=== PATIENT | male | born 1945 | race African-American/Black ===

== ENCOUNTER 2016-12-30 14:46 | Emergency (ER) | payer MEDICARE ==
[~2016-12-30] VITALS: Ht 182.9 cm; Wt 115.0 kg
[~2016-12-30 14:46] MED LIST: BENA1TAB PO; BISM262O; DIAZ10TA PO; DOXA1TAB PO; HYDR-4001 PO; METF500T PO; NITR0.4T SL; PRO AIR
[2016-12-30] MEDS ORDERED: IBUPROFEN 600MG TABLET PO ONE (18:30)
[2016-12-30] MEDS ORDERED: CYCLOBENZAPRINE 10MG TABLET PO ONE (18:30)
[2016-12-30 18:53] VITALS: BP 142/84
[2016-12-30 19:22] LABS: CARBON DIOXIDE 27 mEq/L (21-32); CHLORIDE 103 mEq/L (98-107)
== END 2016-12-30 20:03 | disposition home or self-care (01) ==
LOC: ER 14:50
DX: M25.552 Pain in left hip (principal); I11.9 Hypertensive heart disease without heart failure; Z88.1 Allergy status to other antibiotic agents
CPT/HCPCS: 36415; 73502; 80048; 99285

== ENCOUNTER → 2017-10-01 | Outpatient (CLI) | payer MEDICARE ==
[~2017-10-01] MED LIST changes: +IOHEXOL-300 100 ML BOTTLE ONE
== END | disposition home or self-care (01) ==
LOC: NM 08:50
PROVIDERS: ATTEND Urology
DX: K43.9 Ventral hernia without obstruction or gangrene (principal); C61 Malignant neoplasm of prostate
CPT/HCPCS: 72193; 78306; A9503; Q9967

== ENCOUNTER 2018-12-01 08:53 | Inpatient (IN) | payer MEDICARE ==
[~2018-12-01] VITALS: Ht 190.5 cm; Wt 115.7 kg
[~2018-12-01 08:53] MED LIST changes: -IOHEXOL-300 100 ML BOTTLE ONE
[2018-12-01] MEDS ORDERED: KETOROLAC 30MG/ML VIAL IV STA (09:26)
[2018-12-01] MEDS ORDERED: MORPHINE SULFATE 4 MG/ML CPJ (NOT FOR IM USE) IV STA (09:26)
[2018-12-01] MEDS ORDERED: DEXAMETHASONE 4MG/ML 1ML VIAL IV ONE (09:30)
[2018-12-01 09:59] LABS: BASOPHILS % 0.2 % (0.0-2.0); EOSINOPHILS % 0.8 % (0.0-5.0); HEMATOCRIT. 36.7 % (42.0-52.0); LYMPHOCYTES % 9.1 % (20.0-50.0); MEAN CORPUSCULAR HEMOGLOBIN 28.6 pg (28.0-32.0); MEAN CORPUSCULAR VOLUME 87.3 fL (80.0-94.0); MONOCYTES % 5.8 % (2.0-8.0); NEUTROPHILS % 84.1 % (40.0-76.0); PLATELET 161 x1000/uL (130-400); RED CELL DISTRIBUTION WIDTH 14.4 % (11.6-14.6)
[2018-12-01 10:00] LABS: CHLORIDE 107 mEq/L (98-107)
[2018-12-01] MEDS ORDERED: MORPHINE SULFATE 4 MG/ML CPJ (NOT FOR IM USE) IV ONE (11:15)
[2018-12-01 13:30] VITALS: BP 152/69
[2018-12-01] MEDS ORDERED: ACETAMINOPHEN 325MG TABLET PO PRN (17:45)
[2018-12-01] MEDS ORDERED: ENOXAPARIN 40MG/0.4ML SYR SUBCUT SCH (17:45)
[2018-12-01] MEDS ORDERED: CLONIDINE 0.1MG TABLET PO PRN (17:45)
[2018-12-01] MEDS ORDERED: NITROGLYCERIN 0.4MG TABLET SL SL PRN (17:45)
[2018-12-01] MEDS ORDERED: IPRATROPIUM/ALBUTEROL 0.5-3(2.5)MG/3ML NEB HHN PRN (17:45)
[2018-12-01] MEDS ORDERED: DOCUSATE SODIUM 100MG CAPSULE PO PRN (17:45)
[2018-12-01] MEDS ORDERED: TEMAZEPAM 15MG CAPSULE PO PRN (17:45)
[2018-12-01] MEDS: DEXAMETHASONE 10 MG/ML VIAL PO SCH ×2 (18:08→23:50)
[2018-12-01] MEDS: LISINOPRIL 40MG TABLET PO SCH (18:08)
[2018-12-01 20:00] VITALS: BP 129/76
[2018-12-01] MEDS: CARVEDILOL 6.25 MG TABLET PO SCH (21:27)
[2018-12-01] MEDS: FAMOTIDINE 20MG TABLET PO SCH (21:27)
[2018-12-01] MEDS: DOXAZOSIN MESYLATE 2MG TABLET PO SCH (21:27)
[2018-12-01] MEDS: CYCLOBENZAPRINE 10MG TABLET PO SCH (21:27)
[2018-12-01] MEDS: ENOXAPARIN 30MG/0.3ML SYR SUBCUT SCH (21:28)
[2018-12-01] MEDS: SODIUM CHLORIDE 0.9% INJ 3ML FLUSH IVF SCH (21:28)
[2018-12-02] VITALS: BP 122/89
[2018-12-02 04:00] VITALS: BP 147/80
[2018-12-02] MEDS: SODIUM CHLORIDE 0.9% INJ 3ML FLUSH IVF SCH ×3 (05:25→21:16)
[2018-12-02] MEDS: DEXAMETHASONE 10 MG/ML VIAL PO SCH ×4 (05:26→23:37)
[2018-12-02] MEDS: CYCLOBENZAPRINE 10MG TABLET PO SCH ×3 (05:26→21:16)
[2018-12-02 05:47] LABS: CHLORIDE 104 mEq/L (98-107)
[2018-12-02 06:04] LABS: HEMATOCRIT. 39.2 % (42.0-52.0); HEMOGLOBIN. 12.9 g/dL (14.0-18.0); MEAN CORPUSCULAR HEMOGLOBIN 28.4 pg (28.0-32.0); MEAN CORPUSCULAR VOLUME 86.4 fL (80.0-94.0); MEAN PLATELET VOLUME 8.6 fl (7.4-10.4); PLATELET 184 x1000/uL (130-400); RED BLOOD CELL COUNT 4.54 mill/uL (4.7-6.1); RED CELL DISTRIBUTION WIDTH 14.2 % (11.6-14.6)
[2018-12-02] MEDS: FAMOTIDINE 20MG TABLET PO SCH ×2 (09:42→21:16)
[2018-12-02] MEDS: CARVEDILOL 6.25 MG TABLET PO SCH ×2 (09:42→21:15)
[2018-12-02] MEDS: LISINOPRIL 40MG TABLET PO SCH (09:42)
[2018-12-02] MEDS: ENOXAPARIN 30MG/0.3ML SYR SUBCUT SCH ×2 (09:43→21:16)
[2018-12-02] MEDS: HYDROMORPHONE HCL/PF 2MG/ML CPJ IV PRN ×2 (12:10→21:43)
[2018-12-02] MEDS: AMLODIPINE 5MG TABLET PO SCH ×2 (14:08→21:15)
[2018-12-02] MEDS: FUROSEMIDE 40MG TABLET PO SCH (14:13)
[2018-12-02 18:42] LABS: CLARITY URINE CLEAR (CLEAR); COLOR URINE YELLOW (YELLOW); KETONES URINE TRACE (NEGATIVE); LEUKOCYTE ESTERASE URINE NEGATIVE (NEGATIVE); NITRITE URINE NEGATIVE (NEGATIVE); OCCULT BLOOD URINE NEGATIVE (NEGATIVE); PROTEIN URINE NEGATIVE (NEGATIVE); SPECIFIC GRAVITY URINE 1.018 (1.005-1.030); UROBILINOGEN URINE 0.2 E.U./dL (0.2-1.0)
[2018-12-02] MEDS ORDERED: DEXTROSE 50% WATER 50ML SYRINGE IV PRN (19:30)
[2018-12-02 20:00] VITALS: BP 133/79
[2018-12-02 20:10] LABS: PLATELET ESTIMATE NORMAL
[2018-12-02] MEDS: DOXAZOSIN MESYLATE 2MG TABLET PO SCH (21:15)
[2018-12-02] MEDS: BLOOD SUGAR DIAGNOSTIC STRIP TEST SCH (21:30)
[2018-12-02] MEDS: INSULIN LISPRO 100 UNITS/ML SUBCUT SCH (21:34)
[2018-12-03] VITALS: BP 147/88
[2018-12-03 04:00] VITALS: BP 140/87
[2018-12-03] MEDS: SODIUM CHLORIDE 0.9% INJ 3ML FLUSH IVF SCH ×2 (05:21→13:45)
[2018-12-03] MEDS: DEXAMETHASONE 10 MG/ML VIAL PO SCH (05:21)
[2018-12-03] MEDS: CYCLOBENZAPRINE 10MG TABLET PO SCH ×3 (05:21→21:14)
[2018-12-03] MEDS: BLOOD SUGAR DIAGNOSTIC STRIP TEST SCH ×4 (06:53→21:10)
[2018-12-03 07:26] LABS: HEMATOCRIT. 38.5 % (42.0-52.0); HEMOGLOBIN. 12.7 g/dL (14.0-18.0); MEAN CORPUSCULAR HEMOGLOBIN 28.5 pg (28.0-32.0); MEAN CORPUSCULAR VOLUME 86.6 fL (80.0-94.0); MEAN PLATELET VOLUME 8.3 fl (7.4-10.4); PLATELET 174 x1000/uL (130-400); RED BLOOD CELL COUNT 4.45 mill/uL (4.7-6.1); RED CELL DISTRIBUTION WIDTH 14.4 % (11.6-14.6)
[2018-12-03 07:31] LABS: CHLORIDE 105 mEq/L (98-107)
[2018-12-03] MEDS: INSULIN LISPRO 100 UNITS/ML SUBCUT SCH ×3 (07:50→17:10)
[2018-12-03 08:00] VITALS: BP 127/89
[2018-12-03] MEDS: ENOXAPARIN 30MG/0.3ML SYR SUBCUT SCH ×2 (08:44→21:17)
[2018-12-03] MEDS: FUROSEMIDE 40MG TABLET PO SCH (08:44)
[2018-12-03] MEDS: FAMOTIDINE 20MG TABLET PO SCH ×2 (08:44→21:13)
[2018-12-03] MEDS: CARVEDILOL 6.25 MG TABLET PO SCH ×2 (08:45→21:15)
[2018-12-03] MEDS: AMLODIPINE 5MG TABLET PO SCH ×2 (08:46→21:14)
[2018-12-03] MEDS: HYDROMORPHONE HCL/PF 2MG/ML CPJ IV PRN ×3 (09:40→21:13)
[2018-12-03 12:00] VITALS: BP 110/82
[2018-12-03] MEDS: DEXAMETHASONE 4MG/ML 1ML VIAL IV SCH ×2 (12:32→17:10)
[2018-12-03 16:00] VITALS: BP 143/85
[2018-12-03 16:48] LABS: PLATELET ESTIMATE NORMAL
[2018-12-03] MEDS ORDERED: SACUBITRIL/VALSARTAN 49MG/51MG TABLET PO SCH (21:00)
[2018-12-03] MEDS: DOXAZOSIN MESYLATE 2MG TABLET PO SCH (21:14)
[2018-12-03 23:30] VITALS: BP 117/83
[2018-12-04] MEDS ORDERED: SACU1TAB7 MT ×2 (01:14→01:33)
== END 2018-12-03 23:30 | DRG 552 ==
LOC: ER 08:53 → 6EST 11:35 → ENRESERV 12:06
PROVIDERS: ADMIT Ophthalmology; ATTEND Ophthalmology
DX: M48.061 Spinal stenosis, lumbar region without neurogenic claudication (principal); G82.20 Paraplegia, unspecified; I13.0 Hypertensive heart and chronic kidney disease with heart failure and stage 1 through stage 4 chronic kidney disease, or unspecified chronic kidney disease; M47.26 Other spondylosis with radiculopathy, lumbar region; E78.5 Hyperlipidemia, unspecified; G89.29 Other chronic pain; I25.10 Atherosclerotic heart disease of native coronary artery without angina pectoris; I44.0 Atrioventricular block, first degree; I25.5 Ischemic cardiomyopathy; M19.90 Unspecified osteoarthritis, unspecified site; N40.0 Benign prostatic hyperplasia without lower urinary tract symptoms; M25.561 Pain in right knee; N18.9 Chronic kidney disease, unspecified; E11.22 Type 2 diabetes mellitus with diabetic chronic kidney disease; M51.16 Intervertebral disc disorders with radiculopathy, lumbar region; Z82.49 Family history of ischemic heart disease and other diseases of the circulatory system; Z85.46 Personal history of malignant neoplasm of prostate; Z83.3 Family history of diabetes mellitus; Z95.1 Presence of aortocoronary bypass graft; I25.2 Old myocardial infarction; Z82.3 Family history of stroke; Z88.1 Allergy status to other antibiotic agents; Z79.899 Other long term (current) drug therapy; Z88.8 Allergy status to other drugs, medicaments and biological substances; Z79.84 Long term (current) use of oral hypoglycemic drugs; I50.9 Heart failure, unspecified
CPT/HCPCS: 36415; 72131; 72148; 73502; 80048; 81003; 82962; 93005; 93306; 97116; 97162; 97166; 97760; 99285; J1100; J1170; J1650; J1815; J1885; J2270; J7070

== ENCOUNTER 2018-12-03 23:40 | Inpatient (IN) | payer MEDICARE ==
[~2018-12-03] VITALS: Ht 190.5 cm; Wt 115.7 kg
[2018-12-03 11:40] VITALS: BP 133/75
[2018-12-03 23:14] VITALS: BP 133/75
[2018-12-03 23:40] VITALS: BP 133/75
[~2018-12-03 23:40] MED LIST changes: -BISM262O; -DIAZ10TA PO; -HYDR-4001 PO; -PRO AIR
[2018-12-04] MEDS ORDERED: SACU1TAB7 MT ×2 (01:14→01:33)
[2018-12-04] MEDS ORDERED: CLONIDINE 0.1MG TABLET PO PRN (01:45)
[2018-12-04] MEDS ORDERED: TEMAZEPAM 15MG CAPSULE PO PRN (01:45)
[2018-12-04] MEDS ORDERED: ACETAMINOPHEN 325MG TABLET PO PRN (01:45)
[2018-12-04] MEDS ORDERED: NITROGLYCERIN 0.4MG TABLET SL SL PRN (01:45)
[2018-12-04] MEDS ORDERED: DEXTROSE 50% WATER 50ML SYRINGE IV PRN (01:45)
[2018-12-04] MEDS ORDERED: IPRATROPIUM/ALBUTEROL 0.5-3(2.5)MG/3ML NEB HHN SCH (04:00)
[2018-12-04] MEDS: BLOOD SUGAR DIAGNOSTIC STRIP TEST SCH ×4 (06:45→20:43)
[2018-12-04] MEDS: DEXAMETHASONE 4MG/ML 1ML VIAL IV SCH ×4 (06:45→23:16)
[2018-12-04] MEDS: CYCLOBENZAPRINE 10MG TABLET PO SCH ×3 (06:46→21:42)
[2018-12-04 07:45] VITALS: BP 124/67
[2018-12-04] MEDS: AMLODIPINE 5MG TABLET PO SCH (08:16)
[2018-12-04] MEDS: CARVEDILOL 6.25 MG TABLET PO SCH ×2 (08:16→20:43)
[2018-12-04] MEDS: FAMOTIDINE 20MG TABLET PO SCH ×2 (08:16→20:43)
[2018-12-04] MEDS: DOCUSATE SODIUM 100MG CAPSULE PO SCH ×3 (08:16→16:15)
[2018-12-04] MEDS: SACUBITRIL/VALSARTAN 49MG/51MG TABLET PO SCH ×2 (08:17→16:14)
[2018-12-04] MEDS: FUROSEMIDE 40MG TABLET PO SCH (08:17)
[2018-12-04] MEDS: INSULIN LISPRO 100 UNITS/ML SUBCUT SCH ×4 (08:21→20:43)
[2018-12-04] MEDS ORDERED: NON FORMULARY PATIENT HOME MED PO SCH (09:00)
[2018-12-04] MEDS ORDERED: ENOXAPARIN 30MG/0.3ML SYR SUBCUT SCH (09:00)
[2018-12-04] MEDS: HYDROMORPHONE HCL/PF 2MG/ML CPJ IV PRN ×2 (09:10→12:32)
[2018-12-04] MEDS ORDERED: DIPHENHYDRAMINE 50MG/ML VIAL IV PRN (16:00)
[2018-12-04] MEDS ORDERED: ONDANSETRON HCL 4MG/2ML INJ IV PRN (16:00)
[2018-12-04] MEDS ORDERED: LORAZEPAM 2MG/ML CPJ IV PRN (16:00)
[2018-12-04] MEDS: APIXABAN 5 MG TABLET PO SCH (18:21)
[2018-12-04 20:00] VITALS: BP 125/74
[2018-12-04] MEDS: DOXAZOSIN MESYLATE 2MG TABLET PO SCH (21:42)
[2018-12-04 22:25] LABS: HEMATOCRIT 35.1 % (42.0-52.0); HEMOGLOBIN 11.6 g/dL (14.0-18.0); MEAN CORPUSCULAR HEMOGLOBIN 28.7 pg (28.0-32.0); MEAN CORPUSCULAR VOLUME 86.9 fL (80.0-94.0); PLATELET 145 x1000/uL (130-400); RED BLOOD CELL COUNT 4.04 mill/uL (4.7-6.1); RED CELL DISTRIBUTION WIDTH 14.1 % (11.6-14.6)
[2018-12-04 22:33] LABS: INR 1.2
[2018-12-05] MEDS ORDERED: DEXAMETHASONE 1MG TABLET PO SCH (06:00)
[2018-12-05] MEDS: CYCLOBENZAPRINE 10MG TABLET PO SCH ×4 (06:04→21:26)
[2018-12-05] MEDS: DEXAMETHASONE 4MG/ML 1ML VIAL IV SCH (06:04)
[2018-12-05] MEDS: INSULIN LISPRO 100 UNITS/ML SUBCUT SCH ×4 (06:05→22:21)
[2018-12-05] MEDS: BLOOD SUGAR DIAGNOSTIC STRIP TEST SCH ×4 (06:05→21:41)
[2018-12-05 07:32] LABS: HEMATOCRIT. 37.2 % (42.0-52.0); HEMOGLOBIN. 12.3 g/dL (14.0-18.0); MEAN CORPUSCULAR HEMOGLOBIN 28.7 pg (28.0-32.0); MEAN CORPUSCULAR VOLUME 86.6 fL (80.0-94.0); MEAN PLATELET VOLUME 8.7 fl (7.4-10.4); PLATELET 139 x1000/uL (130-400); RED BLOOD CELL COUNT 4.29 mill/uL (4.7-6.1); RED CELL DISTRIBUTION WIDTH 14.1 % (11.6-14.6)
[2018-12-05 07:35] LABS: HEMATOCRIT 36.7 % (42.0-52.0); HEMOGLOBIN 12.5 g/dL (14.0-18.0); MEAN CORPUSCULAR HEMOGLOBIN 29.4 pg (28.0-32.0); MEAN CORPUSCULAR VOLUME 86.3 fL (80.0-94.0); PLATELET 143 x1000/uL (130-400); RED BLOOD CELL COUNT 4.25 mill/uL (4.7-6.1); RED CELL DISTRIBUTION WIDTH 14.2 % (11.6-14.6)
[2018-12-05 07:59] VITALS: BP 162/86
[2018-12-05] MEDS: FAMOTIDINE 20MG TABLET PO SCH ×3 (08:27→21:26)
[2018-12-05] MEDS: FUROSEMIDE 40MG TABLET PO SCH (08:28)
[2018-12-05] MEDS: CARVEDILOL 6.25 MG TABLET PO SCH ×2 (08:28→21:52)
[2018-12-05] MEDS: DOCUSATE SODIUM 100MG CAPSULE PO SCH ×4 (08:28→17:00)
[2018-12-05] MEDS: AMLODIPINE 5MG TABLET PO SCH (08:28)
[2018-12-05] MEDS: HYDROMORPHONE HCL/PF 2MG/ML CPJ IV PRN (08:31)
[2018-12-05 08:34] LABS: CHLORIDE 106 mEq/L (98-107)
[2018-12-05 08:43] LABS: PHOSPHORUS 3.1 mg/dL (2.5-4.9)
[2018-12-05 08:47] LABS: TOTAL IRON BINDING CAPACITY 228 ug/dL (250-450)
[2018-12-05] MEDS: SACUBITRIL/VALSARTAN 49MG/51MG TABLET PO SCH ×2 (09:11→17:14)
[2018-12-05 10:09] LABS: PLATELET ESTIMATE NORMAL
[2018-12-05 10:15] LABS: FOLIC ACID (FOLATE) SERUM 6.1 ng/mL (>5.38)
[2018-12-05] MEDS ORDERED: BISACODYL 10MG SUPP PR NR (10:15)
[2018-12-05] MEDS: DEXAMETHASONE 1MG TABLET PO SCH ×3 (11:40→23:08)
[2018-12-05] MEDS: LIDOCAINE 5% PATCH TOP SCH (11:41)
[2018-12-05] MEDS: HYDROCODONE/APAP 7.5/325MG 1 TAB TABLET PO PRN ×2 (11:41→21:24)
[2018-12-05] MEDS: LACTULOSE 20G/30ML UDC PO SCH ×4 (11:55→21:08)
[2018-12-05] MEDS: APIXABAN 5 MG TABLET PO SCH ×2 (11:57→17:14)
[2018-12-05] MEDS ORDERED: PANT40TA4 MT (13:59)
[2018-12-05] MEDS ORDERED: FELO2.5T MT (13:59)
[2018-12-05] MEDS ORDERED: DIAZ10TA4 PO (13:59)
[2018-12-05] MEDS ORDERED: ALBU90AE IH (13:59)
[2018-12-05] MEDS ORDERED: ATOR40TA70 MT (13:59)
[2018-12-05] MEDS ORDERED: CARV25TA47 MT (13:59)
[2018-12-05] MEDS ORDERED: FURO20TA4 MT (13:59)
[2018-12-05] MEDS ORDERED: CLOP75TA33 MT (13:59)
[2018-12-05] MEDS ORDERED: POTA20TA82 PO (13:59)
[2018-12-05] MEDS ORDERED: HYDR-4005 MT (13:59)
[2018-12-05] MEDS: SODIUM CHLORIDE 0.45% 1,000 ML IV SCH (15:55)
[2018-12-05 20:00] VITALS: BP 117/79
[2018-12-05] MEDS: DOXAZOSIN MESYLATE 2MG TABLET PO SCH ×2 (21:25→21:27)
[2018-12-06] MEDS: SODIUM CHLORIDE 0.45% 1,000 ML IV SCH ×2 (05:25→22:05)
[2018-12-06] MEDS: HYDROCODONE/APAP 7.5/325MG 1 TAB TABLET PO PRN ×3 (06:51→20:39)
[2018-12-06] MEDS: DEXAMETHASONE 1MG TABLET PO SCH ×3 (06:52→17:22)
[2018-12-06] MEDS: BLOOD SUGAR DIAGNOSTIC STRIP TEST SCH ×4 (06:55→20:40)
[2018-12-06 07:41] VITALS: BP 156/98
[2018-12-06] MEDS: AMLODIPINE 5MG TABLET PO SCH (08:15)
[2018-12-06] MEDS: CARVEDILOL 6.25 MG TABLET PO SCH ×2 (08:15→21:18)
[2018-12-06] MEDS: FAMOTIDINE 20MG TABLET PO SCH ×2 (08:15→20:40)
[2018-12-06] MEDS: FUROSEMIDE 40MG TABLET PO SCH (08:15)
[2018-12-06] MEDS: APIXABAN 5 MG TABLET PO SCH ×2 (08:15→17:47)
[2018-12-06] MEDS: DOCUSATE SODIUM 100MG CAPSULE PO SCH ×4 (08:16→17:00)
[2018-12-06] MEDS: POLYETHYLENE GLYCOL 3350 (17GM) 1 DOSE PACK PO SCH (08:16)
[2018-12-06] MEDS: SACUBITRIL/VALSARTAN 49MG/51MG TABLET PO SCH ×2 (08:17→17:22)
[2018-12-06] MEDS: LIDOCAINE 5% PATCH TOP SCH (08:17)
[2018-12-06] MEDS: INSULIN LISPRO 100 UNITS/ML SUBCUT SCH ×4 (08:18→20:48)
[2018-12-06 08:43] LABS: CHLORIDE 106 mEq/L (98-107)
[2018-12-06 09:00] LABS: T4 FREE 0.87 ng/dL (0.76-1.46)
[2018-12-06] MEDS: CYCLOBENZAPRINE 10MG TABLET PO SCH ×2 (13:28→20:40)
[2018-12-06 20:00] VITALS: BP 129/78
[2018-12-07] MEDS: DEXAMETHASONE 2MG TABLET PO SCH ×5 (00:45→23:01)
[2018-12-07] MEDS: CYCLOBENZAPRINE 10MG TABLET PO SCH ×3 (05:59→23:01)
[2018-12-07] MEDS: BLOOD SUGAR DIAGNOSTIC STRIP TEST SCH ×4 (06:00→21:29)
[2018-12-07] MEDS: INSULIN LISPRO 100 UNITS/ML SUBCUT SCH ×4 (06:08→21:35)
[2018-12-07] MEDS: HYDROCODONE/APAP 7.5/325MG 1 TAB TABLET PO PRN ×3 (06:52→21:27)
[2018-12-07 07:55] LABS: HEMATOCRIT. 40.6 % (42.0-52.0); HEMOGLOBIN. 13.2 g/dL (14.0-18.0); MEAN CORPUSCULAR HEMOGLOBIN 28.3 pg (28.0-32.0); MEAN PLATELET VOLUME 8.7 fl (7.4-10.4); PLATELET 169 x1000/uL (130-400); RED BLOOD CELL COUNT 4.66 mill/uL (4.7-6.1); RED CELL DISTRIBUTION WIDTH 14.2 % (11.6-14.6)
[2018-12-07 08:00] VITALS: BP 139/91
[2018-12-07 08:05] LABS: CHLORIDE 105 mEq/L (98-107)
[2018-12-07] MEDS: CARVEDILOL 6.25 MG TABLET PO SCH ×2 (08:25→21:28)
[2018-12-07] MEDS: AMLODIPINE 5MG TABLET PO SCH (08:25)
[2018-12-07] MEDS: FAMOTIDINE 20MG TABLET PO SCH ×2 (08:25→21:27)
[2018-12-07] MEDS: POLYETHYLENE GLYCOL 3350 (17GM) 1 DOSE PACK PO SCH (08:26)
[2018-12-07] MEDS: FUROSEMIDE 40MG TABLET PO SCH (08:26)
[2018-12-07] MEDS: LIDOCAINE 5% PATCH TOP SCH (08:26)
[2018-12-07] MEDS: SACUBITRIL/VALSARTAN 49MG/51MG TABLET PO SCH ×2 (08:26→17:53)
[2018-12-07] MEDS: DOCUSATE SODIUM 100MG CAPSULE PO SCH ×3 (08:26→17:00)
[2018-12-07] MEDS: APIXABAN 5 MG TABLET PO SCH ×2 (09:11→17:49)
[2018-12-07 09:39] LABS: PLATELET ESTIMATE NORMAL
[2018-12-07] MEDS: SODIUM CHLORIDE 0.45% 1,000 ML IV SCH (14:45)
[2018-12-07 20:00] VITALS: BP 119/84
[2018-12-07] MEDS: DOXAZOSIN MESYLATE 2MG TABLET PO SCH (23:01)
[2018-12-08] MEDS: DEXAMETHASONE 2MG TABLET PO SCH ×3 (06:07→16:45)
[2018-12-08] MEDS: CYCLOBENZAPRINE 10MG TABLET PO SCH ×3 (06:07→23:26)
[2018-12-08] MEDS: BLOOD SUGAR DIAGNOSTIC STRIP TEST SCH ×4 (06:08→21:05)
[2018-12-08] MEDS: INSULIN LISPRO 100 UNITS/ML SUBCUT SCH ×4 (06:14→21:12)
[2018-12-08] MEDS: SODIUM CHLORIDE 0.45% 1,000 ML IV SCH ×3 (07:25→17:04)
[2018-12-08 08:00] VITALS: BP 120/66
[2018-12-08] MEDS: DOCUSATE SODIUM 100MG CAPSULE PO SCH ×2 (08:32→16:45)
[2018-12-08] MEDS: POLYETHYLENE GLYCOL 3350 (17GM) 1 DOSE PACK PO SCH (08:33)
[2018-12-08] MEDS: APIXABAN 5 MG TABLET PO SCH ×2 (08:33→16:45)
[2018-12-08] MEDS: FAMOTIDINE 20MG TABLET PO SCH ×2 (08:33→21:04)
[2018-12-08] MEDS: LIDOCAINE 5% PATCH TOP SCH (08:33)
[2018-12-08] MEDS: FUROSEMIDE 40MG TABLET PO SCH (08:33)
[2018-12-08] MEDS: CARVEDILOL 6.25 MG TABLET PO SCH ×2 (08:33→21:04)
[2018-12-08] MEDS: AMLODIPINE 5MG TABLET PO SCH (08:37)
[2018-12-08] MEDS: SACUBITRIL/VALSARTAN 49MG/51MG TABLET PO SCH ×2 (08:37→16:45)
[2018-12-08] MEDS: HYDROCODONE/APAP 7.5/325MG 1 TAB TABLET PO PRN ×3 (08:47→23:29)
[2018-12-08 09:35] LABS: CHLORIDE 103 mEq/L (98-107)
[2018-12-08] MEDS ORDERED: SODIUM POLYSTYRENE SULFONATE 15 G/60 ML BOT PO NR (12:30)
[2018-12-08 20:00] VITALS: BP 126/66
[2018-12-08] MEDS: DOXAZOSIN MESYLATE 2MG TABLET PO SCH (21:05)
[2018-12-08] MEDS: DEXAMETHASONE 1MG TABLET PO SCH (23:26)
[2018-12-09] MEDS: SODIUM CHLORIDE 0.45% 1,000 ML IV SCH ×2 (04:44→14:44)
[2018-12-09] MEDS: DEXAMETHASONE 1MG TABLET PO SCH ×3 (05:32→17:28)
[2018-12-09] MEDS: CYCLOBENZAPRINE 10MG TABLET PO SCH ×3 (05:32→21:40)
[2018-12-09] MEDS: BLOOD SUGAR DIAGNOSTIC STRIP TEST SCH ×4 (05:32→21:40)
[2018-12-09] MEDS: HYDROCODONE/APAP 7.5/325MG 1 TAB TABLET PO PRN ×3 (07:00→21:44)
[2018-12-09] MEDS: INSULIN LISPRO 100 UNITS/ML SUBCUT SCH ×4 (07:03→21:41)
[2018-12-09 08:00] VITALS: BP 143/87
[2018-12-09] MEDS: POLYETHYLENE GLYCOL 3350 (17GM) 1 DOSE PACK PO SCH (08:39)
[2018-12-09] MEDS: FAMOTIDINE 20MG TABLET PO SCH ×2 (08:40→21:40)
[2018-12-09] MEDS: APIXABAN 5 MG TABLET PO SCH ×2 (08:40→16:27)
[2018-12-09] MEDS: FUROSEMIDE 40MG TABLET PO SCH (08:40)
[2018-12-09] MEDS: LIDOCAINE 5% PATCH TOP SCH (08:40)
[2018-12-09] MEDS: DOCUSATE SODIUM 100MG CAPSULE PO SCH ×2 (08:40→16:30)
[2018-12-09] MEDS: AMLODIPINE 5MG TABLET PO SCH (08:41)
[2018-12-09] MEDS: CARVEDILOL 6.25 MG TABLET PO SCH ×2 (08:41→21:00)
[2018-12-09] MEDS: SACUBITRIL/VALSARTAN 49MG/51MG TABLET PO SCH ×2 (09:27→16:28)
[2018-12-09 11:43] LABS: HEMATOCRIT. 42.4 % (42.0-52.0); HEMOGLOBIN. 13.8 g/dL (14.0-18.0); MEAN CORPUSCULAR HEMOGLOBIN 28.4 pg (28.0-32.0); MEAN CORPUSCULAR VOLUME 87.4 fL (80.0-94.0); MEAN PLATELET VOLUME 8.5 fl (7.4-10.4); PLATELET 197 x1000/uL (130-400); RED BLOOD CELL COUNT 4.85 mill/uL (4.7-6.1); RED CELL DISTRIBUTION WIDTH 14.5 % (11.6-14.6)
[2018-12-09 11:59] LABS: CHLORIDE 106 mEq/L (98-107)
[2018-12-09 12:15] LABS: T4 FREE 0.83 ng/dL (0.76-1.46)
[2018-12-09 12:45] LABS: PLATELET ESTIMATE NORMAL
[2018-12-09 20:00] VITALS: BP 96/67
[2018-12-09] MEDS: DOXAZOSIN MESYLATE 2MG TABLET PO SCH (21:00)
[2018-12-10] MEDS: SODIUM CHLORIDE 0.45% 1,000 ML IV SCH ×2 (00:44→10:44)
[2018-12-10] MEDS: DEXAMETHASONE 1MG TABLET PO SCH ×4 (00:45→17:21)
[2018-12-10] MEDS: CYCLOBENZAPRINE 10MG TABLET PO SCH ×3 (06:14→21:23)
[2018-12-10] MEDS: HYDROCODONE/APAP 7.5/325MG 1 TAB TABLET PO PRN ×2 (06:25→15:48)
[2018-12-10] MEDS: BLOOD SUGAR DIAGNOSTIC STRIP TEST SCH ×4 (06:26→21:23)
[2018-12-10] MEDS: INSULIN LISPRO 100 UNITS/ML SUBCUT SCH ×4 (07:27→21:34)
[2018-12-10 08:00] VITALS: BP 136/85
[2018-12-10 08:11] LABS: CHLORIDE 105 mEq/L (98-107)
[2018-12-10] MEDS: POLYETHYLENE GLYCOL 3350 (17GM) 1 DOSE PACK PO SCH (09:00)
[2018-12-10] MEDS: DOCUSATE SODIUM 100MG CAPSULE PO SCH ×2 (09:00→17:00)
[2018-12-10] MEDS: FAMOTIDINE 20MG TABLET PO SCH ×2 (10:09→21:23)
[2018-12-10] MEDS: APIXABAN 5 MG TABLET PO SCH ×2 (10:10→17:57)
[2018-12-10] MEDS: CARVEDILOL 6.25 MG TABLET PO SCH ×2 (10:10→21:00)
[2018-12-10] MEDS: FUROSEMIDE 40MG TABLET PO SCH (10:11)
[2018-12-10] MEDS: AMLODIPINE 5MG TABLET PO SCH (10:11)
[2018-12-10] MEDS: SACUBITRIL/VALSARTAN 49MG/51MG TABLET PO SCH ×2 (10:11→17:21)
[2018-12-10] MEDS: LIDOCAINE 5% PATCH TOP SCH (10:12)
[2018-12-10 20:00] VITALS: BP 112/78
[2018-12-10] MEDS: DOXAZOSIN MESYLATE 2MG TABLET PO SCH (21:39)
[2018-12-11] MEDS: DEXAMETHASONE 1MG TABLET PO SCH ×2 (06:17→19:01)
[2018-12-11] MEDS: CYCLOBENZAPRINE 10MG TABLET PO SCH ×3 (06:17→21:50)
[2018-12-11] MEDS: BLOOD SUGAR DIAGNOSTIC STRIP TEST SCH ×4 (06:17→21:50)
[2018-12-11] MEDS: INSULIN LISPRO 100 UNITS/ML SUBCUT SCH ×4 (06:17→21:00)
[2018-12-11 08:00] VITALS: BP 114/71
[2018-12-11] MEDS: DOCUSATE SODIUM 100MG CAPSULE PO SCH ×2 (08:34→16:12)
[2018-12-11] MEDS: APIXABAN 5 MG TABLET PO SCH ×2 (08:35→16:12)
[2018-12-11] MEDS: FUROSEMIDE 40MG TABLET PO SCH (08:35)
[2018-12-11] MEDS: HYDROCODONE/APAP 7.5/325MG 1 TAB TABLET PO PRN ×2 (08:37→16:13)
[2018-12-11] MEDS: CARVEDILOL 6.25 MG TABLET PO SCH ×2 (08:38→21:00)
[2018-12-11] MEDS: POLYETHYLENE GLYCOL 3350 (17GM) 1 DOSE PACK PO SCH (08:38)
[2018-12-11] MEDS: AMLODIPINE 5MG TABLET PO SCH (08:38)
[2018-12-11] MEDS: FAMOTIDINE 20MG TABLET PO SCH ×2 (08:38→21:50)
[2018-12-11] MEDS: LIDOCAINE 5% PATCH TOP SCH (08:39)
[2018-12-11] MEDS: SACUBITRIL/VALSARTAN 49MG/51MG TABLET PO SCH ×2 (09:17→16:13)
[2018-12-11 20:00] VITALS: BP 94/48
[2018-12-11] MEDS: DOXAZOSIN MESYLATE 2MG TABLET PO SCH (21:00)
[2018-12-12] MEDS: DEXAMETHASONE 1MG TABLET PO SCH (06:14)
[2018-12-12] MEDS: CYCLOBENZAPRINE 10MG TABLET PO SCH ×3 (06:14→21:40)
[2018-12-12] MEDS: BLOOD SUGAR DIAGNOSTIC STRIP TEST SCH ×4 (06:14→21:00)
[2018-12-12] MEDS: HYDROCODONE/APAP 7.5/325MG 1 TAB TABLET PO PRN ×3 (06:25→21:52)
[2018-12-12 08:00] VITALS: BP 108/76
[2018-12-12] MEDS: CARVEDILOL 6.25 MG TABLET PO SCH ×2 (08:32→21:42)
[2018-12-12] MEDS: AMLODIPINE 5MG TABLET PO SCH (08:32)
[2018-12-12] MEDS: FAMOTIDINE 20MG TABLET PO SCH ×2 (08:32→21:41)
[2018-12-12] MEDS: DOCUSATE SODIUM 100MG CAPSULE PO SCH ×2 (08:32→16:46)
[2018-12-12] MEDS: APIXABAN 5 MG TABLET PO SCH ×2 (08:32→16:46)
[2018-12-12] MEDS: INSULIN LISPRO 100 UNITS/ML SUBCUT SCH ×4 (08:32→21:00)
[2018-12-12] MEDS: FUROSEMIDE 40MG TABLET PO SCH (08:32)
[2018-12-12] MEDS: SACUBITRIL/VALSARTAN 49MG/51MG TABLET PO SCH ×2 (08:33→16:46)
[2018-12-12] MEDS: LIDOCAINE 5% PATCH TOP SCH (08:33)
[2018-12-12] MEDS: POLYETHYLENE GLYCOL 3350 (17GM) 1 DOSE PACK PO SCH (08:33)
[2018-12-12 20:00] VITALS: BP 113/77
[2018-12-12] MEDS: DOXAZOSIN MESYLATE 2MG TABLET PO SCH (21:40)
[2018-12-13] MEDS: CYCLOBENZAPRINE 10MG TABLET PO SCH (06:50)
[2018-12-13] MEDS: BLOOD SUGAR DIAGNOSTIC STRIP TEST SCH ×2 (06:56→12:05)
[2018-12-13 08:00] VITALS: BP 127/75
[2018-12-13] MEDS: INSULIN LISPRO 100 UNITS/ML SUBCUT SCH (09:00)
[2018-12-13] MEDS: DOCUSATE SODIUM 100MG CAPSULE PO SCH (09:00)
[2018-12-13] MEDS: POLYETHYLENE GLYCOL 3350 (17GM) 1 DOSE PACK PO SCH (09:00)
[2018-12-13] MEDS: SACUBITRIL/VALSARTAN 49MG/51MG TABLET PO SCH (09:37)
[2018-12-13] MEDS: FUROSEMIDE 40MG TABLET PO SCH (09:37)
[2018-12-13] MEDS: APIXABAN 5 MG TABLET PO SCH (09:38)
[2018-12-13] MEDS: CARVEDILOL 6.25 MG TABLET PO SCH (09:38)
[2018-12-13] MEDS: AMLODIPINE 5MG TABLET PO SCH (09:38)
[2018-12-13] MEDS: FAMOTIDINE 20MG TABLET PO SCH (09:38)
[2018-12-13] MEDS: LIDOCAINE 5% PATCH TOP SCH (09:39)
[2018-12-13 11:43] LABS: HEMATOCRIT. 38.1 % (42.0-52.0); HEMOGLOBIN. 12.4 g/dL (14.0-18.0); MEAN CORPUSCULAR HEMOGLOBIN 28.6 pg (28.0-32.0); MEAN CORPUSCULAR VOLUME 87.6 fL (80.0-94.0); MEAN PLATELET VOLUME 8.2 fl (7.4-10.4); PLATELET 153 x1000/uL (130-400); RED BLOOD CELL COUNT 4.35 mill/uL (4.7-6.1); RED CELL DISTRIBUTION WIDTH 14.4 % (11.6-14.6)
[2018-12-13 12:09] VITALS: BP 127/75
[2018-12-13 12:09] LABS: CHLORIDE 106 mEq/L (98-107)
[2018-12-13 14:37] LABS: PLATELET ESTIMATE NORMAL
== END 2018-12-13 14:30 | disposition home or self-care (01) | DRG 551 ==
LOC: UNDOADMIN 12-04 01:17
PROVIDERS: ADMIT Psychiatry & Neurology Neurology; ATTEND Ophthalmology
DX: M48.061 Spinal stenosis, lumbar region without neurogenic claudication (principal); I50.23 Acute on chronic systolic (congestive) heart failure; I82.431 Acute embolism and thrombosis of right popliteal vein; G82.20 Paraplegia, unspecified; N17.9 Acute kidney failure, unspecified; I13.0 Hypertensive heart and chronic kidney disease with heart failure and stage 1 through stage 4 chronic kidney disease, or unspecified chronic kidney disease; M47.26 Other spondylosis with radiculopathy, lumbar region; N18.9 Chronic kidney disease, unspecified; E11.22 Type 2 diabetes mellitus with diabetic chronic kidney disease; D72.829 Elevated white blood cell count, unspecified; E78.5 Hyperlipidemia, unspecified; I25.10 Atherosclerotic heart disease of native coronary artery without angina pectoris; L91.0 Hypertrophic scar; T38.0X5A Adverse effect of glucocorticoids and synthetic analogues, initial encounter; E11.65 Type 2 diabetes mellitus with hyperglycemia; R53.81 Other malaise; N40.0 Benign prostatic hyperplasia without lower urinary tract symptoms; D64.9 Anemia, unspecified; I25.5 Ischemic cardiomyopathy; E66.9 Obesity, unspecified; Z68.31 Body mass index [BMI] 31.0-31.9, adult; I25.2 Old myocardial infarction; Z82.49 Family history of ischemic heart disease and other diseases of the circulatory system; Z83.3 Family history of diabetes mellitus; Z82.3 Family history of stroke; Z79.01 Long term (current) use of anticoagulants; Z85.46 Personal history of malignant neoplasm of prostate; Z87.891 Personal history of nicotine dependence; Z88.1 Allergy status to other antibiotic agents; Z95.1 Presence of aortocoronary bypass graft; Y92.89 Other specified places as the place of occurrence of the external cause
CPT/HCPCS: 36415; 76770; 80048; 80061; 82607; 82728; 82746; 82962; 83036; 83540; 83550; 84100; 84153; 84439; 84443; 84481; 85027; 86376; 93970; 94640; 97110; 97116; 97150; 97162; 97166; 97530; 97535; J1100; J1170; J1650; J1815; J7620; J8540; G0103

== ENCOUNTER 2022-12-10 18:53 | Inpatient (IN) | payer MEDICARE ==
[~2022-12-10] VITALS: Ht 182.9 cm; Wt 109.3 kg
[~2022-12-10 18:53] MED LIST changes: +ALBU90AE IH; +ATOR40TA70 PO; -BENA1TAB PO; +CARV25TA47 MT; +CLOP75TA33 PO; -DOXA1TAB PO; +DULO60CA64 PO; +ERGO1250 PO; +FELO5TAB46 PO; +FURO20TA4 MT; +LEVE750T4 MT; -METF500T PO; +ORGOVYX PO; +POTA-204 PO; +SACU1TAB7 MT
[2022-12-10 19:30] VITALS: BP 127/64; PULSE 83; RESP 18; TEMP 98
[2022-12-10 20:00] VITALS: BP 130/72; PULSE 91; TEMP 97.7
[2022-12-10] MEDS ORDERED: DEXTROSE 50% WATER 50ML SYRINGE IV PRN (20:30)
[2022-12-10] MEDS: INSULIN LISPRO 100 UNITS/ML SUBCUT SCH (21:00)
[2022-12-10] MEDS: BLOOD SUGAR DIAGNOSTIC STRIP TEST SCH (21:49)
[2022-12-10] MEDS: CARVEDILOL 3.125 MG TABLET PO SCH (21:50)
[2022-12-10] MEDS: EPOETIN ALFA 4000UNITS/ML VIAL SUBCUT SCH (21:50)
[2022-12-10] MEDS: LEVETIRACETAM 500MG PREMIX 100 ML IV SCH (22:37)
[2022-12-10 23:40] VITALS: RESP 12
[2022-12-10] MEDS ORDERED: CLONIDINE 0.1MG TABLET PO PRN (23:45)
[2022-12-10] MEDS ORDERED: GUAIFENESIN 200MG/10ML SUGAR FREE UDC PO PRN (23:45)
[2022-12-10] MEDS ORDERED: DOCUSATE SODIUM 100MG CAPSULE PO PRN (23:45)
[2022-12-10] MEDS ORDERED: MAGNESIUM/ALUMINUM HYDROXIDE/SIMETHICONE 30ML UDC PO PRN (23:45)
[2022-12-10] MEDS ORDERED: NITROGLYCERIN 0.4MG TABLET SL SL PRN (23:45)
[2022-12-10] MEDS ORDERED: ONDANSETRON HCL 4MG/2ML INJ IV PRN (23:45)
[2022-12-11 04:20] VITALS: RESP 14
[2022-12-11] MEDS: BLOOD SUGAR DIAGNOSTIC STRIP TEST SCH ×4 (07:05→21:14)
[2022-12-11] MEDS: INSULIN LISPRO 100 UNITS/ML SUBCUT SCH ×4 (07:06→21:00)
[2022-12-11 08:00] VITALS: BP 130/57; PULSE 77; RESP 17; TEMP 96
[2022-12-11] MEDS: FERROUS SULFATE 325MG TABLET PO SCH ×3 (09:00→17:00)
[2022-12-11] MEDS: FUROSEMIDE 40MG TABLET PO SCH (09:00)
[2022-12-11] MEDS: LEVETIRACETAM 500MG PREMIX 100 ML IV SCH ×2 (09:00→21:18)
[2022-12-11] MEDS: ENOXAPARIN 30MG/0.3ML SYR SUBCUT SCH (09:00)
[2022-12-11] MEDS: PANTOPRAZOLE SODIUM 40 MG/VIAL IV SCH (09:00)
[2022-12-11] MEDS: CARVEDILOL 3.125 MG TABLET PO SCH ×2 (09:01→21:19)
[2022-12-11] MEDS: ACETAMINOPHEN 325MG TABLET PO PRN ×2 (09:19→21:25)
[2022-12-11 20:00] VITALS: BP 122/59; PULSE 78; RESP 18; TEMP 97
[2022-12-11 22:15] LABS: HEMATOCRIT. 27.5 % (42.0-52.0); HEMOGLOBIN. 8.4 g/dL (14.0-18.0); MEAN CORPUSCULAR HEMOGLOBIN 27.3 pg (28.0-32.0); MEAN CORPUSCULAR HGB CONC 30.6 g/dL (31.0-37.0); MEAN CORPUSCULAR VOLUME 89.1 fL (80.0-94.0); MEAN PLATELET VOLUME 8.6 fl (7.4-10.4); PLATELET 158 x1000/uL (130-400); RED BLOOD CELL COUNT 3.09 mill/uL (4.7-6.1); RED CELL DISTRIBUTION WIDTH 17.1 % (11.6-14.6); WHITE BLOOD COUNT 4.1 x1000/uL (4.5-11.0)
[2022-12-11 22:16] LABS: DIFFERENTIAL COMMENT 1
[2022-12-11 22:35] LABS: CHLORIDE 105 mEq/L (98-107); INDEX HEMOLYSI 1 (1-3); INDEX ICTERIC 1 (1-4); INDEX LIPEMIC 1 (1-3); POTASSIUM 4.3 mEq/L (3.5-5.1); SODIUM 139 mEq/L (136-145)
[2022-12-11 22:44] LABS: ALANINE AMINOTRANSFERASE 73 IU/L (13-61); ALBUMIN 2.7 g/dL (3.4-5.0); ASPARTATE AMINOTRANSFERASE 22 IU/L (15-37); BILIRUBIN TOTAL 0.7 mg/dL (0.1-1.0); CALCIUM 8.4 mg/dL (8.5-10.1); CARBON DIOXIDE 26 mEq/L (21-32); GLUCOSE 107 mg/dL (70-105); PROTEIN TOTAL 5.1 g/dL (6.0-8.3); UREA NITROGEN BLOOD 56 mg/dL (7-21)
[2022-12-11 22:46] LABS: PLATELET ESTIMATE NORMAL
[2022-12-12 01:07] VITALS: RESP 17
[2022-12-12] MEDS: BLOOD SUGAR DIAGNOSTIC STRIP TEST SCH ×4 (06:02→21:28)
[2022-12-12 06:49] LABS: HEMATOCRIT 28.2 % (42.0-52.0); HEMOGLOBIN 8.6 g/dL (14.0-18.0); MEAN CORPUSCULAR HEMOGLOBIN 27.6 pg (28.0-32.0); MEAN CORPUSCULAR HGB CONC 30.7 g/dL (31.0-37.0); PLATELET 168 x1000/uL (130-400); RED BLOOD CELL COUNT 3.13 mill/uL (4.7-6.1); RED CELL DISTRIBUTION WIDTH 17.5 % (11.6-14.6); WHITE BLOOD COUNT 4.4 x1000/uL (4.5-11.0)
[2022-12-12 07:07] LABS: POTASSIUM 4.5 mEq/L (3.5-5.1)
[2022-12-12 07:13] LABS: CALCIUM 7.4 mg/dL (8.5-10.1); CREATININE 1.8 mg/dL (0.6-1.3)
[2022-12-12 08:00] VITALS: BP 119/65; PULSE 79; RESP 20; TEMP 97.2
[2022-12-12] MEDS: PANTOPRAZOLE SODIUM 40 MG/VIAL IV SCH (08:38)
[2022-12-12] MEDS: LEVETIRACETAM 500MG PREMIX 100 ML IV SCH ×2 (08:38→21:29)
[2022-12-12] MEDS: CARVEDILOL 3.125 MG TABLET PO SCH ×2 (08:39→21:30)
[2022-12-12] MEDS: FERROUS SULFATE 325MG TABLET PO SCH ×3 (08:39→16:49)
[2022-12-12] MEDS: FUROSEMIDE 40MG TABLET PO SCH (08:39)
[2022-12-12] MEDS: ERGOCALCIFEROL 50000UNITS CAPSULE PO SCH (08:39)
[2022-12-12] MEDS: ENOXAPARIN 30MG/0.3ML SYR SUBCUT SCH (08:40)
[2022-12-12] MEDS: INSULIN LISPRO 100 UNITS/ML SUBCUT SCH ×4 (08:49→21:00)
[2022-12-12] MEDS: ACETAMINOPHEN 325MG TABLET PO PRN ×2 (08:51→14:41)
[2022-12-12] MEDS ORDERED: CLONIDINE 0.2MG TABLET PO ONE (19:30)
[2022-12-12 20:00] VITALS: BP 141/57; PULSE 83; RESP 18; TEMP 97.7
[2022-12-12] MEDS: EPOETIN ALFA 4000UNITS/ML VIAL SUBCUT SCH (21:29)
[2022-12-12 22:15] VITALS: RESP 15
[2022-12-13 00:35] VITALS: RESP 14
[2022-12-13 04:30] VITALS: RESP 15
[2022-12-13] MEDS: BLOOD SUGAR DIAGNOSTIC STRIP TEST SCH ×4 (07:02→21:00)
[2022-12-13 08:00] VITALS: BP 115/44; PULSE 92; RESP 18; TEMP 97.1
[2022-12-13] MEDS: INSULIN LISPRO 100 UNITS/ML SUBCUT SCH ×4 (09:00→21:00)
[2022-12-13] MEDS: FERROUS SULFATE 325MG TABLET PO SCH ×3 (09:08→18:31)
[2022-12-13] MEDS: CARVEDILOL 3.125 MG TABLET PO SCH ×2 (09:09→21:49)
[2022-12-13] MEDS: FUROSEMIDE 40MG TABLET PO SCH (09:09)
[2022-12-13] MEDS: ENOXAPARIN 30MG/0.3ML SYR SUBCUT SCH (09:11)
[2022-12-13] MEDS: PANTOPRAZOLE SODIUM 40 MG/VIAL IV SCH (09:18)
[2022-12-13] MEDS: LEVETIRACETAM 500MG PREMIX 100 ML IV SCH ×2 (09:18→20:58)
[2022-12-13] MEDS ORDERED: CARBAMIDE PEROXIDE 6.5% OTIC SOLN 15ML EACH EAR NR (15:30)
[2022-12-13 20:00] VITALS: BP 137/62; PULSE 82; RESP 17; TEMP 98.1
[2022-12-13 23:46] VITALS: RESP 12
[2022-12-14] MEDS: BLOOD SUGAR DIAGNOSTIC STRIP TEST SCH ×2 (06:30→21:00)
[2022-12-14 07:19] LABS: HEMATOCRIT 27.3 % (42.0-52.0); HEMOGLOBIN 8.6 g/dL (14.0-18.0); MEAN CORPUSCULAR HGB CONC 31.6 g/dL (31.0-37.0); MEAN CORPUSCULAR VOLUME 88.6 fL (80.0-94.0); PLATELET 159 x1000/uL (130-400); RED BLOOD CELL COUNT 3.08 mill/uL (4.7-6.1); RED CELL DISTRIBUTION WIDTH 17.2 % (11.6-14.6); WHITE BLOOD COUNT 3.9 x1000/uL (4.5-11.0)
[2022-12-14 08:00] VITALS: BP 138/65; PULSE 91; RESP 18; TEMP 97.3
[2022-12-14] MEDS: INSULIN LISPRO 100 UNITS/ML SUBCUT SCH ×4 (09:00→21:00)
[2022-12-14] MEDS: LEVETIRACETAM 500MG PREMIX 100 ML IV SCH ×2 (09:57→22:41)
[2022-12-14] MEDS: ZINC SULFATE 220 MG ( 50 ) CAPSULE PO SCH (09:57)
[2022-12-14] MEDS: ASCORBIC ACID 500 MG TABLET PO SCH (09:58)
[2022-12-14] MEDS: FUROSEMIDE 40MG TABLET PO SCH (09:58)
[2022-12-14] MEDS: PANTOPRAZOLE SODIUM 40 MG/VIAL IV SCH (09:59)
[2022-12-14] MEDS: CARVEDILOL 3.125 MG TABLET PO SCH ×2 (09:59→22:42)
[2022-12-14] MEDS: FERROUS SULFATE 325MG TABLET PO SCH ×3 (10:05→18:40)
[2022-12-14 10:06] LABS: POTASSIUM 4.6 mEq/L (3.5-5.1)
[2022-12-14] MEDS: ENOXAPARIN 30MG/0.3ML SYR SUBCUT SCH (10:08)
[2022-12-14 10:12] LABS: CALCIUM 8.3 mg/dL (8.5-10.1); CREATININE 1.9 mg/dL (0.6-1.3)
[2022-12-14] MEDS: ACETAMINOPHEN 325MG TABLET PO PRN (10:33)
[2022-12-14 20:00] VITALS: BP 124/51; PULSE 83; RESP 18; TEMP 97.3
[2022-12-14] MEDS: EPOETIN ALFA 4000UNITS/ML VIAL SUBCUT SCH (22:42)
[2022-12-15] MEDS: INSULIN LISPRO 100 UNITS/ML SUBCUT SCH ×4 (06:51→21:00)
[2022-12-15] MEDS: BLOOD SUGAR DIAGNOSTIC STRIP TEST SCH ×4 (06:51→21:32)
[2022-12-15 08:00] VITALS: BP 137/68; PULSE 61; RESP 20; TEMP 97.7
[2022-12-15] MEDS: FUROSEMIDE 40MG TABLET PO SCH (08:35)
[2022-12-15] MEDS: CARVEDILOL 3.125 MG TABLET PO SCH ×2 (08:35→21:00)
[2022-12-15] MEDS: FERROUS SULFATE 325MG TABLET PO SCH ×3 (08:35→17:39)
[2022-12-15] MEDS: ZINC SULFATE 220 MG ( 50 ) CAPSULE PO SCH (08:35)
[2022-12-15] MEDS: ASCORBIC ACID 500 MG TABLET PO SCH (08:35)
[2022-12-15] MEDS: PANTOPRAZOLE SODIUM 40 MG/VIAL IV SCH (08:35)
[2022-12-15] MEDS: ENOXAPARIN 30MG/0.3ML SYR SUBCUT SCH (08:35)
[2022-12-15] MEDS: LEVETIRACETAM 500MG PREMIX 100 ML IV SCH ×2 (08:36→21:00)
[2022-12-15 10:07] LABS: HEMATOCRIT 27.2 % (42.0-52.0); HEMOGLOBIN 8.5 g/dL (14.0-18.0); MEAN CORPUSCULAR HEMOGLOBIN 27.8 pg (28.0-32.0); MEAN CORPUSCULAR HGB CONC 31.1 g/dL (31.0-37.0); MEAN CORPUSCULAR VOLUME 89.4 fL (80.0-94.0); PLATELET 147 x1000/uL (130-400); RED BLOOD CELL COUNT 3.04 mill/uL (4.7-6.1); RED CELL DISTRIBUTION WIDTH 17.2 % (11.6-14.6); WHITE BLOOD COUNT 4.1 x1000/uL (4.5-11.0)
[2022-12-15 11:16] LABS: POTASSIUM 4.7 mEq/L (3.5-5.1)
[2022-12-15 11:20] LABS: CREATININE 1.9 mg/dL (0.6-1.3)
[2022-12-15 20:00] VITALS: BP 122/49; PULSE 88; RESP 18; TEMP 97.3
[2022-12-16] MEDS: BLOOD SUGAR DIAGNOSTIC STRIP TEST SCH ×4 (06:38→21:05)
[2022-12-16] MEDS: INSULIN LISPRO 100 UNITS/ML SUBCUT SCH ×4 (06:39→21:00)
[2022-12-16 06:54] LABS: BASOPHILS % 0.5 % (0.0-2.0); EOSINOPHILS % 0.9 % (0.0-5.0); HEMATOCRIT. 27.3 % (42.0-52.0); HEMOGLOBIN. 8.8 g/dL (14.0-18.0); MEAN CORPUSCULAR HEMOGLOBIN 28.1 pg (28.0-32.0); MEAN CORPUSCULAR HGB CONC 32.1 g/dL (31.0-37.0); MEAN CORPUSCULAR VOLUME 87.6 fL (80.0-94.0); MEAN PLATELET VOLUME 8.6 fl (7.4-10.4); MONOCYTES % 6.2 % (2.0-8.0); NEUTROPHILS % 83.4 % (40.0-76.0); PLATELET 139 x1000/uL (130-400); RED BLOOD CELL COUNT 3.12 mill/uL (4.7-6.1); RED CELL DISTRIBUTION WIDTH 16.6 % (11.6-14.6); WHITE BLOOD COUNT 4.2 x1000/uL (4.5-11.0)
[2022-12-16 07:03] LABS: POTASSIUM 4.7 mEq/L (3.5-5.1)
[2022-12-16 07:07] LABS: CREATININE 1.8 mg/dL (0.6-1.3)
[2022-12-16 08:00] VITALS: BP 112/48; PULSE 89; RESP 22; TEMP 97.3
[2022-12-16] MEDS: LEVETIRACETAM 500MG PREMIX 100 ML IV SCH ×2 (09:02→20:58)
[2022-12-16] MEDS: ENOXAPARIN 30MG/0.3ML SYR SUBCUT SCH (09:02)
[2022-12-16] MEDS: PANTOPRAZOLE SODIUM 40 MG/VIAL IV SCH (09:02)
[2022-12-16] MEDS: FERROUS SULFATE 325MG TABLET PO SCH ×3 (09:03→17:00)
[2022-12-16] MEDS: FUROSEMIDE 40MG TABLET PO SCH (09:03)
[2022-12-16] MEDS: ASCORBIC ACID 500 MG TABLET PO SCH (09:03)
[2022-12-16] MEDS: ZINC SULFATE 220 MG ( 50 ) CAPSULE PO SCH (09:03)
[2022-12-16] MEDS: CARVEDILOL 3.125 MG TABLET PO SCH ×2 (09:03→20:58)
[2022-12-16] MEDS: ACETAMINOPHEN 325MG TABLET PO PRN (19:13)
[2022-12-16 20:00] VITALS: BP 125/46; PULSE 87; RESP 19; TEMP 96.4
[2022-12-17] MEDS: BLOOD SUGAR DIAGNOSTIC STRIP TEST SCH ×4 (06:30→21:00)
[2022-12-17 08:07] VITALS: BP 126/52; PULSE 85; RESP 19; TEMP 97.6
[2022-12-17] MEDS: INSULIN LISPRO 100 UNITS/ML SUBCUT SCH ×4 (09:00→21:00)
[2022-12-17] MEDS: LEVETIRACETAM 500MG PREMIX 100 ML IV SCH ×2 (09:28→21:27)
[2022-12-17] MEDS: PANTOPRAZOLE SODIUM 40 MG/VIAL IV SCH (09:28)
[2022-12-17] MEDS: ASCORBIC ACID 500 MG TABLET PO SCH (09:53)
[2022-12-17] MEDS: FUROSEMIDE 40MG TABLET PO SCH (09:53)
[2022-12-17] MEDS: ZINC SULFATE 220 MG ( 50 ) CAPSULE PO SCH (09:53)
[2022-12-17] MEDS: FERROUS SULFATE 325MG TABLET PO SCH ×3 (09:53→17:41)
[2022-12-17] MEDS: CARVEDILOL 3.125 MG TABLET PO SCH ×2 (09:54→21:25)
[2022-12-17] MEDS: ENOXAPARIN 30MG/0.3ML SYR SUBCUT SCH (09:54)
[2022-12-17] MEDS: ACETAMINOPHEN 325MG TABLET PO PRN (10:00)
[2022-12-17 20:00] VITALS: BP 129/64; PULSE 83; RESP 16; TEMP 98.8
[2022-12-18] MEDS: BLOOD SUGAR DIAGNOSTIC STRIP TEST SCH ×4 (06:09→20:29)
[2022-12-18 08:00] VITALS: BP 130/55; PULSE 82; RESP 18; TEMP 97.2
[2022-12-18] MEDS: INSULIN LISPRO 100 UNITS/ML SUBCUT SCH ×4 (09:00→20:29)
[2022-12-18] MEDS: FERROUS SULFATE 325MG TABLET PO SCH ×3 (10:10→17:57)
[2022-12-18] MEDS: ENOXAPARIN 30MG/0.3ML SYR SUBCUT SCH (10:10)
[2022-12-18] MEDS: ZINC SULFATE 220 MG ( 50 ) CAPSULE PO SCH (10:10)
[2022-12-18] MEDS: PANTOPRAZOLE SODIUM 40 MG/VIAL IV SCH (10:10)
[2022-12-18] MEDS: FUROSEMIDE 40MG TABLET PO SCH (10:11)
[2022-12-18] MEDS: CARVEDILOL 3.125 MG TABLET PO SCH ×2 (10:11→20:23)
[2022-12-18] MEDS: ASCORBIC ACID 500 MG TABLET PO SCH (10:11)
[2022-12-18] MEDS: LEVETIRACETAM 500MG PREMIX 100 ML IV SCH ×2 (10:12→21:08)
[2022-12-18] MEDS: ACETAMINOPHEN 325MG TABLET PO PRN (18:01)
[2022-12-18 20:00] VITALS: BP 145/52; PULSE 81; RESP 16; TEMP 97.7
[2022-12-19] MEDS: BLOOD SUGAR DIAGNOSTIC STRIP TEST SCH ×4 (06:25→20:53)
[2022-12-19 08:00] VITALS: BP 92/43; PULSE 80; RESP 20; TEMP 97.1
[2022-12-19] MEDS: INSULIN LISPRO 100 UNITS/ML SUBCUT SCH ×4 (09:00→20:52)
[2022-12-19] MEDS: FUROSEMIDE 40MG TABLET PO SCH (09:47)
[2022-12-19] MEDS: LEVETIRACETAM 500MG PREMIX 100 ML IV SCH ×2 (09:47→20:53)
[2022-12-19] MEDS: ZINC SULFATE 220 MG ( 50 ) CAPSULE PO SCH (09:47)
[2022-12-19] MEDS: PANTOPRAZOLE SODIUM 40 MG/VIAL IV SCH (09:47)
[2022-12-19] MEDS: CARVEDILOL 3.125 MG TABLET PO SCH ×2 (09:50→20:51)
[2022-12-19] MEDS: ASCORBIC ACID 500 MG TABLET PO SCH (09:50)
[2022-12-19] MEDS: FERROUS SULFATE 325MG TABLET PO SCH ×3 (09:50→16:57)
[2022-12-19] MEDS: ENOXAPARIN 30MG/0.3ML SYR SUBCUT SCH (09:51)
[2022-12-19] MEDS: ERGOCALCIFEROL 50000UNITS CAPSULE PO SCH (09:52)
[2022-12-19 10:44] LABS: BASOPHILS % 0.5 % (0.0-2.0); HEMATOCRIT. 29.6 % (42.0-52.0); HEMOGLOBIN. 9.2 g/dL (14.0-18.0); LYMPHOCYTES % 10.9 % (20.0-50.0); MEAN CORPUSCULAR HEMOGLOBIN 27.6 pg (28.0-32.0); MEAN CORPUSCULAR HGB CONC 31.2 g/dL (31.0-37.0); MEAN CORPUSCULAR VOLUME 88.6 fL (80.0-94.0); MEAN PLATELET VOLUME 8.7 fl (7.4-10.4); MONOCYTES % 6.8 % (2.0-8.0); NEUTROPHILS % 80.8 % (40.0-76.0); PLATELET 110 x1000/uL (130-400); RED BLOOD CELL COUNT 3.34 mill/uL (4.7-6.1); RED CELL DISTRIBUTION WIDTH 16.4 % (11.6-14.6)
[2022-12-19] MEDS: ACETAMINOPHEN 325MG TABLET PO PRN (11:25)
[2022-12-19 12:18] LABS: POTASSIUM 4.9 mEq/L (3.5-5.1)
[2022-12-19 12:24] LABS: CALCIUM 8.5 mg/dL (8.5-10.1); CREATININE 1.8 mg/dL (0.6-1.3)
[2022-12-19 20:00] VITALS: BP 151/54; PULSE 72; RESP 17; TEMP 98
[2022-12-19] MEDS: EPOETIN ALFA 4000UNITS/ML VIAL SUBCUT SCH ×2 (20:52→21:00)
[2022-12-20] MEDS: PANTOPRAZOLE 40MG DR TABLET PO SCH (06:18)
[2022-12-20] MEDS: BLOOD SUGAR DIAGNOSTIC STRIP TEST SCH ×4 (06:30→21:00)
[2022-12-20 07:07] LABS: BASOPHILS % 0.6 % (0.0-2.0); EOSINOPHILS % 0.5 % (0.0-5.0); HEMATOCRIT. 29.9 % (42.0-52.0); HEMOGLOBIN. 9.4 g/dL (14.0-18.0); LYMPHOCYTES % 10.3 % (20.0-50.0); MEAN CORPUSCULAR HEMOGLOBIN 27.9 pg (28.0-32.0); MEAN CORPUSCULAR HGB CONC 31.6 g/dL (31.0-37.0); MEAN CORPUSCULAR VOLUME 88.2 fL (80.0-94.0); MEAN PLATELET VOLUME 8.8 fl (7.4-10.4); MONOCYTES % 6.4 % (2.0-8.0); NEUTROPHILS % 82.2 % (40.0-76.0); PLATELET 106 x1000/uL (130-400); RED BLOOD CELL COUNT 3.39 mill/uL (4.7-6.1); RED CELL DISTRIBUTION WIDTH 16.8 % (11.6-14.6); WHITE BLOOD COUNT 3.1 x1000/uL (4.5-11.0)
[2022-12-20] MEDS: INSULIN LISPRO 100 UNITS/ML SUBCUT SCH ×4 (07:56→21:00)
[2022-12-20 08:00] VITALS: BP 130/60; PULSE 55; RESP 18; TEMP 97.9
[2022-12-20] MEDS: LEVETIRACETAM 500MG TABLET PO SCH ×2 (08:04→16:34)
[2022-12-20] MEDS: ENOXAPARIN 30MG/0.3ML SYR SUBCUT SCH (08:04)
[2022-12-20] MEDS: ASCORBIC ACID 500 MG TABLET PO SCH (08:04)
[2022-12-20] MEDS: ZINC SULFATE 220 MG ( 50 ) CAPSULE PO SCH (08:05)
[2022-12-20] MEDS: FERROUS SULFATE 325MG TABLET PO SCH ×3 (08:05→16:34)
[2022-12-20] MEDS: CARVEDILOL 3.125 MG TABLET PO SCH ×2 (08:05→21:18)
[2022-12-20] MEDS: FUROSEMIDE 40MG TABLET PO SCH (08:05)
[2022-12-20 08:58] LABS: POTASSIUM 4.8 mEq/L (3.5-5.1)
[2022-12-20 09:00] LABS: CALCIUM 8.3 mg/dL (8.5-10.1)
[2022-12-20 09:05] LABS: CREATININE 1.9 mg/dL (0.6-1.3)
[2022-12-20 12:00] VITALS: BP 135/51; PULSE 83; RESP 20; TEMP 98.2
[2022-12-20] MEDS: ACETAMINOPHEN 325MG TABLET PO PRN (14:11)
[2022-12-21] MEDS: PANTOPRAZOLE 40MG DR TABLET PO SCH ×2 (06:04→11:45)
[2022-12-21] MEDS: BLOOD SUGAR DIAGNOSTIC STRIP TEST SCH ×2 (06:04→21:58)
[2022-12-21] MEDS: ENOXAPARIN 30MG/0.3ML SYR SUBCUT SCH (09:00)
[2022-12-21] MEDS: ZINC SULFATE 220 MG ( 50 ) CAPSULE PO SCH (11:44)
[2022-12-21] MEDS: FERROUS SULFATE 325MG TABLET PO SCH ×3 (11:45→17:00)
[2022-12-21] MEDS: FUROSEMIDE 40MG TABLET PO SCH (11:45)
[2022-12-21] MEDS: ASCORBIC ACID 500 MG TABLET PO SCH (11:45)
[2022-12-21] MEDS: ERGOCALCIFEROL 50000UNITS CAPSULE PO SCH (11:45)
[2022-12-21] MEDS: LEVETIRACETAM 500MG TABLET PO SCH ×2 (11:45→16:54)
[2022-12-21] MEDS: CARVEDILOL 3.125 MG TABLET PO SCH ×2 (11:47→21:00)
[2022-12-21 20:00] VITALS: BP 93/48; PULSE 87; RESP 19; TEMP 97.7
[2022-12-21] MEDS: EPOETIN ALFA 4000UNITS/ML VIAL SUBCUT SCH (21:58)
[2022-12-21] MEDS: INSULIN LISPRO 100 UNITS/ML SUBCUT SCH (22:07)
[2022-12-22] MEDS: BLOOD SUGAR DIAGNOSTIC STRIP TEST SCH (06:53)
[2022-12-22 08:00] VITALS: BP 112/56; PULSE 74; RESP 19; TEMP 98
[2022-12-22] MEDS: ENOXAPARIN 30MG/0.3ML SYR SUBCUT SCH (09:00)
[2022-12-22] MEDS: ZINC SULFATE 220 MG ( 50 ) CAPSULE PO SCH (11:09)
[2022-12-22] MEDS: LEVETIRACETAM 500MG TABLET PO SCH (11:09)
[2022-12-22] MEDS: PANTOPRAZOLE 40MG DR TABLET PO SCH (11:09)
[2022-12-22] MEDS: FUROSEMIDE 40MG TABLET PO SCH (11:10)
[2022-12-22] MEDS: CARVEDILOL 3.125 MG TABLET PO SCH (11:10)
[2022-12-22] MEDS: FERROUS SULFATE 325MG TABLET PO SCH ×2 (11:11→14:31)
[2022-12-22] MEDS: ASCORBIC ACID 500 MG TABLET PO SCH (11:11)
[2022-12-22 12:47] VITALS: BP 112/56; PULSE 74; TEMP 98; O2SAT 99
== END 2022-12-22 16:10 | DRG 85 ==
LOC: 4WST 18:53
PROVIDERS: ADMIT Physical Medicine & Rehabilitation Spinal Cord Injury Medicine; ATTEND Internal Medicine
DX: S06.5X0A Traumatic subdural hemorrhage without loss of consciousness, initial encounter (principal); A41.9 Sepsis, unspecified organism; G92.8 Other toxic encephalopathy; I50.23 Acute on chronic systolic (congestive) heart failure; J96.01 Acute respiratory failure with hypoxia; J96.02 Acute respiratory failure with hypercapnia; K72.00 Acute and subacute hepatic failure without coma; N17.0 Acute kidney failure with tubular necrosis; I21.4 Non-ST elevation (NSTEMI) myocardial infarction; K76.7 Hepatorenal syndrome; I13.0 Hypertensive heart and chronic kidney disease with heart failure and stage 1 through stage 4 chronic kidney disease, or unspecified chronic kidney disease; E44.0 Moderate protein-calorie malnutrition; J90 Pleural effusion, not elsewhere classified; Z20.822 Contact with and (suspected) exposure to COVID-19; D63.8 Anemia in other chronic diseases classified elsewhere; E16.2 Hypoglycemia, unspecified; E83.42 Hypomagnesemia; E83.51 Hypocalcemia; E87.5 Hyperkalemia; G40.909 Epilepsy, unspecified, not intractable, without status epilepticus; I08.3 Combined rheumatic disorders of mitral, aortic and tricuspid valves; I25.10 Atherosclerotic heart disease of native coronary artery without angina pectoris; K80.20 Calculus of gallbladder without cholecystitis without obstruction; K76.82 Hepatic encephalopathy; N18.30 Chronic kidney disease, stage 3 unspecified; K74.60 Unspecified cirrhosis of liver; F39 Unspecified mood [affective] disorder; I27.20 Pulmonary hypertension, unspecified; L89.90 Pressure ulcer of unspecified site, unspecified stage; M48.02 Spinal stenosis, cervical region; G89.29 Other chronic pain; M62.81 Muscle weakness (generalized); R74.01 Elevation of levels of liver transaminase levels; R53.81 Other malaise; I95.9 Hypotension, unspecified; R26.89 Other abnormalities of gait and mobility; N28.1 Cyst of kidney, acquired; Z79.899 Other long term (current) drug therapy; Z85.46 Personal history of malignant neoplasm of prostate; Z88.1 Allergy status to other antibiotic agents; Z91.81 History of falling; Z92.3 Personal history of irradiation; Z95.1 Presence of aortocoronary bypass graft; Z88.8 Allergy status to other drugs, medicaments and biological substances; Z68.32 Body mass index [BMI] 32.0-32.9, adult
CPT/HCPCS: 36415; 80048; 80053; 82962; 85025; 85027; 87426; 92523; 92610; 93970; 94660; 97110; 97116; 97162; 97166; 97530; 97535; 97542; C9113; J0885; J1650; J1815; J1953